=== PATIENT | female | born 1945 | race Caucasian/White ===

== ENCOUNTER → 2016-09-23 | Emergency (ER) | payer OTHER, MEDICARE ==
[2016-09-23 15:42] VITALS: BP 139/81; PULSE 92; RESP 16; TEMP 98.8; O2SAT 94
--- NOTE | 2016-09-23 15:43 | UCPHY ---
H & P Time Seen by Provider: 09/23/16 15:05 Patient Type: Established HPI/ROS: 71-year-old female presents complaining of diverticulitis she states she has been on Augmentin for about a week but can feel it is not improving and would like to change her antibiotic. She has had over 18 episodes of diverticulitis feels very familiar with this. She denies fevers or chills she denies vomiting. She states other than the fact that it is not improved on the Augmentin that seems very typical of her prior episodes. Review of systems As per HPI General no fever no chills no weakness HEENT no eye pain no eye discharge. No eye redness, no sore throat Respiratory no cough, no shortness of breath Cardiac no chest pain, no peripheral edema GI positive abdominal pain, no diarrhea, no constipation, no nausea, no vomiting no flank pain, no hematuria, no dysuria Musculoskeletal no myalgias, no joint pain Heme no easy bruising, no easy bleeding Endo no polyuria, no polydipsia Skin no rashes, no pruritus Neuro no syncope, no dizziness, no headaches Psych is no suicidal ideation, no homicidal ideation Past Medical/Surgical History: Hypertension Hypothyroid Diverticulitis Social History: Alcohol socially l or drug use Smoking Status: Former smoker Physical Exam: 71-year-old female alert and oriented no acute distress nontoxic appearance afebrile Alert and oriented in no acute distress nontoxic appearance, afebrile Atraumatic normocephalic Neck no JVD Lungs clear to auscultation, no respiratory distress Heart regular rate and rhythm Abdomen-obese, bowel sounds present, soft, tenderness to palpation left lower quadrant no guarding no rebound Extremities no cyanosis clubbing edema Constitutional: Initial Vital Signs Temperature (C) 37.1 C 09/23/16 15:20 Heart Rate 92 09/23/16 15:20 Respiratory Rate 16 09/23/16 15:20 Blood Pressure 139/81 H 09/23/16 15:20 O2 Sat (%) 94 09/23/16 15:20 O2 Delivery Mode Room Air Allergies/Adverse Reactions: morphine [Morphine] Allergy (Intermediate, Verified 09/23/16 15:23) Hives Sulfa (Sulfonamide Antibiotics) Allergy (Intermediate, Verified 09/23/16 15:23) Hives VENANCIO Inhibitors Allergy (Verified 09/23/16 15:23) Unknown bacitracin [From Neosporin (luc-urn-avixd)] Allergy (Verified 09/23/16 15:23) Hives bacitracin zinc [From Neosporin (etw-wbe-yuenl)] Allergy (Verified 09/23/16 15: 23) neomycin sulfate [From Neosporin (ujh-kge-rngdt)] Allergy (Verified 09/23/16 15: 23) polymyxin B [From Neosporin (pir-nfs-nalpx)] Allergy (Verified 09/23/16 15:23) beta blockers Allergy (Uncoded 09/23/16 15:23) Home Medications: Medication Instructions Recorded Levothyroxine [Levothroid, 112 mcg PO DAILY@1000 02/02/11 Synthroid] amLODIPine BESYLATE [Norvasc] 10 mg PO HS 03/17/13 Cholecalciferol Vit D3 [Vitamin D3 2,000 units PO DAILY 03/24/13 2000 units (OTC)] Losartan Potassium 05/28/15 Augmentin 875 MG TAB (*) 09/23/16 Ciprofloxacin [Cipro] 500 mg PO BID #20 tab 09/23/16 Metronidazole 500 mg PO TID #30 tablet 09/23/16 Pravastatin Sodium 09/23/16 traZODONE 50MG (*) 09/23/16 Medical Decision Making ED Course/Re-evaluation: Patient seen and evaluated for change of antibiotic for current diverticulitis exacerbation Physical exam relatively benign positive left lower quadrant tenderness without guarding or rebound Vital signs stable no evidence of sepsis Patient is afebrile Currently on Augmentin Impression Diverticulitis by history Plan Cipro twice daily times 10 days Flagyl three times daily times 10 days Follow up with Dr. Cait Nazario Departure - Departure Disposition: Home, Routine, Self-Care Clinical Impression: Diverticulitis Condition: Good Instructions: Diverticulitis (ED) Referrals: Cait Nazario MD [Primary Care Provider] - As per Instructions Prescriptions: Ciprofloxacin [Cipro] 500 mg PO BID #20 tab Metronidazole 500 mg PO TID #30 tablet - PQRS PQRS Measurement: 134: Depression screening and followup, PRIME RAMOS-PHQ2 (12 years and older) Over the last 2 weeks, how often have you been bothered by any of the following problems? 1. Feeling down, depressed, or hopeless? 2. Little interest or pleasure in doing things? Patient answered no to both 1 and 2 130: Documentation of medications. Reviewed all patient medications, doses, route and frequency. 226: Do you smoke? No. 47: 65 and older: Advanced care planning. Patient designates surrogate decision maker as spouse.. [Patient has advanced directive.] 51: 18 years old and older with diagnosis of COPD, spirometry performance. [Patient has no history of COPD 52: 18 years old and older with COPD and symptoms of COPD or FEV1<60% predicted prescribed a B Agonist. [Spirometry not performed; equipment not available.]
== END | disposition home or self-care (01) ==
LOC: CED 14:56
DX: K57.92 Diverticulitis of intestine, part unspecified, without perforation or abscess without bleeding (principal); E03.9 Hypothyroidism, unspecified; I10 Essential (primary) hypertension; Z87.891 Personal history of nicotine dependence; Z88.2 Allergy status to sulfonamides; Z88.5 Allergy status to narcotic agent
CPT/HCPCS: 99214-PO; G0463-PO

== ENCOUNTER → 2017-03-26 | Outpatient (CLI) | payer OTHER, MEDICARE | LOC: FIMAGING 09:53 | PROVIDERS: ATTEND Internal Medicine Hematology & Oncology | DX: Z12.31 Encounter for screening mammogram for malignant neoplasm of breast (principal); Z90.11 Acquired absence of right breast and nipple | CPT/HCPCS: G0202-52 ==

== ENCOUNTER 2017-11-10 13:12 | Emergency (ER) | payer OTHER, MEDICARE ==
--- NOTE | 2017-11-10 13:43 | EDPHY ---
HPI/HX/ROS/PE/MDM Narrative: CHIEF COMPLAINT: Left arm pain radiating to neck HISTORY OF PRESENT ILLNESS: The patient is a 72 y/o female with a history of type 2 diabetes, hypertension, breast and colon cancer complaining of left arm pain that is radiating to her neck onset 2 weeks ago. In 2013 she had left lower arm surgery. Prior to the onset of pain she felt a popping sensation in her lower left arm. The pain has worsened over the last 2 weeks and became exacerbated today while working at the [employer]. At that time she had minor numbness and an irritated sensation in her shoulder. She has since noticed minor swelling and tenderness localized to the left wrist. Ibuprofen provided mild pain relief. For the past several days she has felt normal besides mild neck pain yesterday. No history of PE or DVT, clotting disorders. No fever, chills, chest pain, shortness of breath, palpitations, vomiting, diarrhea, urinary complaints, headache, lightheadedness. REVIEW OF SYSTEMS: Aside from elements discussed in the HPI, a comprehensive 10-point review of systems was reviewed and is negative. Normal chest CT, 1.[address] Saud Mari, oncologist. Normal heart catheterization in 2010. PAST MEDICAL HISTORY: Hypertension, colon cancer, diverticulitis, hypercholesteremia, type 2 diabetes, angio sarcoma, right-sided mastectomy, left arm surgery, normal heart catheterization (2010) SOCIAL HISTORY: Lives in [place], single, retired VITAL SIGNS: Reviewed by me GENERAL: Well-developed, well-nourished, resting comfortably in no respiratory distress. HEENT: Atraumatic. Eyes: No icterus, no injection. Mouth: moist mucous membranes. No erythema or lesions. Neck: supple with no adenopathy. LUNGS: Clear to auscultation bilaterally, no wheezes, rhonchi or rales. CARDIAC: Regular rate and rhythm, no rubs, murmurs or gallops. CHEST: Right-sided mastectomy. ABDOMEN: Soft, nontender, nondistended, bowel sounds normal. BACK: No CVA tenderness. EXTREMITIES: No lymph nodes in left axilla, no tenderness or swelling of the upper arm, unable to fully extend left elbow due to surgery, mild swelling and tenderness over radial aspect of left wrist. No trauma. Otherwise range of motion is normal throughout. NEURO: Alert and oriented, grossly nonfocal. SKIN: Warm and dry, no rash. PSYCHIATRIC: Normal mentation, no agitation. Portions of this note were transcribed by a health care / medical job titles. I personally performed a history, physical exam, medical decision making, and confirmed accuracy of information the transcribed note. ED Course: The patient is a 72 y/o female with a history of type 2 diabetes, hypertension, breast and colon cancer presenting with worsening left arm pain that is radiating to her neck onset 2 weeks ago. On exam she has no lymph nodes in left axilla, no tenderness or swelling of the humerus, unable to fully extend left elbow due to surgery, mild swelling and tenderness over radial aspect of left wrist. Labs, EKG, and left upper extremity US ordered. She is declining pain medication at this time. 1402: 12-LEAD EKG: Please see the full report in [facility]. My interpretation: Normal sinus rhythm with a rate of 74, probable inferior infarct Labs normal. US no DVT. Will DC with follow up. Suspect radicular pain or local musculoskeletal over-use pain in wrist. MDM: Diff dx considered included but not limited to upper extremity DVT, overuse syndrome, musculoskeletal pain, radicular pain, cardiac cause. - Data Points Imaging Results: US of Left UE: Impression: No evidence of vein thrombosis in the left arm. Results called and discussed with Lety Olivares MD at 11/10/2017 15:21. Dictated By: Mamadou Jerome MD Imaging: Discussed imaging studies w/ bingo caller Radiologist Laboratory Results: Laboratory Results 11/10/17 14:15 11/10/17 14:15 General Time Seen by Provider: 11/10/17 13:42 Initial Vital Signs: Initial Vital Signs Temperature (C) 36.5 C 11/10/17 13:26 Heart Rate 84 11/10/17 13:26 Respiratory Rate 18 11/10/17 13:26 Blood Pressure 146/45 H 11/10/17 13:26 O2 Sat (%) 95 11/10/17 13:26 O2 Delivery Mode Room Air Allergies/Adverse Reactions: morphine [Morphine] Allergy (Intermediate, Verified 09/23/16 15:23) Hives Sulfa (Sulfonamide Antibiotics) Allergy (Intermediate, Verified 09/23/16 15:23) Hives VENANCIO Inhibitors Allergy (Verified 09/23/16 15:23) Unknown bacitracin [From Neosporin (ojv-hix-bzgyj)] Allergy (Verified 09/23/16 15:23) Hives bacitracin zinc [From Neosporin (mbq-flc-txusk)] Allergy (Verified 09/23/16 15: 23) neomycin sulfate [From Neosporin (luc-cqt-afakt)] Allergy (Verified 09/23/16 15: 23) polymyxin B [From Neosporin (cay-klq-gpdcw)] Allergy (Verified 09/23/16 15:23) beta blockers Allergy (Uncoded 09/23/16 15:23) Home Medications: Medication Instructions Recorded Levothyroxine [Levothroid, 112 mcg PO DAILY@1000 02/02/11 Synthroid] amLODIPine BESYLATE [Norvasc] 10 mg PO HS 03/17/13 Cholecalciferol Vit D3 [Vitamin D3 2,000 units PO DAILY 03/24/13 2000 units (OTC)] Losartan Potassium 05/28/15 Augmentin 875 MG TAB (*) 09/23/16 Ciprofloxacin [Cipro] 500 mg PO BID #20 tab 09/23/16 Metronidazole 500 mg PO TID #30 tablet 09/23/16 Pravastatin Sodium 09/23/16 traZODONE 50MG (*) 09/23/16 Departure - Departure Disposition: Home, Routine, Self-Care Clinical Impression: Neck pain Arm pain Qualifiers: Laterality: left Qualified Code(s): M79.602 - Pain in left arm Condition: Good Instructions: Cervical Radiculopathy (ED), Arm Pain (ED) Additional Instructions: Okay to take Tylenol or ibuprofen as needed for ongoing discomfort. Please follow up with her primary care physician regarding further evaluation. Referrals: Cait Nazario MD [Primary Care Provider] - As per Instructions Report Scribed for: Lety Olivares Report Scribed by: Ifrah Oconnor Date of Report: 11/10/17 Time of Report: 13:43
--- NOTE | 2017-11-10 14:04 | CPEKG ---
Heart Rate: 74 RR Interval: 811 P-R Interval: 156 QRSD Interval: 76 QT Interval: 392 QTC Interval: 435 P Corea: 14 QRS Corea: -14 T Wave Corea: 5 EKG Severity - ABNORMAL ECG - EKG Impression: SINUS RHYTHM EKG Impression: PROBABLE INFERIOR INFARCT, AGE INDETERMINATE Electronically Signed By: Lety Olivares 11-Nov-2017 22:33:57
[2017-11-10 14:29] LABS: PLATELET COUNT 200 10^3/uL (150-400)
[2017-11-10 15:44] VITALS: BP 143/92
== END 2017-11-10 15:44 | disposition home or self-care (01) ==
DX: M54.2 Cervicalgia (principal); M79.602 Pain in left arm; I10 Essential (primary) hypertension; E11.9 Type 2 diabetes mellitus without complications; Z85.038 Personal history of other malignant neoplasm of large intestine

== ENCOUNTER → 2018-03-27 | Outpatient (CLI) | payer OTHER, MEDICARE | LOC: FIMAGING 12:32 | PROVIDERS: ATTEND Internal Medicine Hematology & Oncology | DX: Z12.31 Encounter for screening mammogram for malignant neoplasm of breast (principal); Z90.11 Acquired absence of right breast and nipple ==

== ENCOUNTER → 2018-05-21 | Outpatient (CLI) | payer OTHER, MEDICARE | LOC: FIMAGING 12:51 | PROVIDERS: ATTEND Internal Medicine | DX: Z13.820 Encounter for screening for osteoporosis (principal); M81.0 Age-related osteoporosis without current pathological fracture ==

== ENCOUNTER → 2018-11-18 | Outpatient (CLI) | payer OTHER, MEDICARE | LOC: BHLMT 10:00 | PROVIDERS: ATTEND Internal Medicine Cardiovascular Disease | DX: R07.9 Chest pain, unspecified (principal) | CPT/HCPCS: 93017-PO ==

== ENCOUNTER 2018-11-25 07:17 | Day surgery (SDC) | payer OTHER, MEDICARE ==
[2018-11-25] MEDS ORDERED: DIAZEPAM 5 MG TAB PO ONE (07:19)
[2018-11-25] MEDS ORDERED: FAMOTIDINE 20 MG TAB PO ONE (07:19)
[2018-11-25] MEDS ORDERED: ASPIRIN EC 325 MG TAB PO ONE ×2 (07:19→07:34)
[2018-11-25] MEDS ORDERED: diphenhydrAMINE 25 MG CAP PO ONE ×2 (07:19→07:34)
[2018-11-25] MEDS ORDERED: NS 1,000 ML IV ONE (07:19)
[2018-11-25] MEDS ORDERED: FAMOTIDINE 20 MG TAB ONE (07:34)
[2018-11-25] MEDS ORDERED: DIAZEPAM 5 MG TAB ONE (07:35)
[2018-11-25] MEDS ORDERED: MIDAZOLAM 2 MG/2 ML VIAL ONE (08:06)
[2018-11-25] MEDS ORDERED: fentaNYL 100 MCG/2 ML INJ ONE (08:06)
[2018-11-25] MEDS ORDERED: HEPARIN 10,000 UNIT/10 ML MDV (1,000 UNIT/ML) ONE ×2 (08:06→08:21)
[2018-11-25] MEDS ORDERED: LIDOCAINE 1% 300 MG/30 ML SDV ONE ×2 (08:06→08:20)
[2018-11-25] MEDS ORDERED: VERAPAMIL 5 MG/2 ML VIAL ONE (08:06)
[2018-11-25] MEDS ORDERED: IOPAMIDOL (ISOVUE-370) 150 ML BTL IV ONE (08:07)
[2018-11-25 08:18] LABS: PLATELET COUNT 182 10^3/uL (150-400)
[2018-11-25] MEDS ORDERED: BUPIVACAINE 0.5% 30 ML SDV ONE (08:20)
[2018-11-25] MEDS ORDERED: IOPAMIDOL (ISOVUE-300) 100 ML BTL ONE (08:20)
[2018-11-25 08:29] LABS: INR 0.92 (0.83-1.16)
--- NOTE | 2018-11-25 08:48 | PDPROPOC ---
Sedation Plan of Care Sedation Plan of Care: vital signs stable, mental status noted, patient educated of risks, benefits, alternatives, patient can tolerate sedation ASA Classification: ASA 3 Planned drugs: fentanyl, midazolam Mallampati Score: Class 3 Mallampati Reference Image: Patient passed 3-3-2 rule?: No
--- NOTE | 2018-11-25 08:48 | PDHPUP ---
History & Physical Update H&P update statement: This history and physical update is based on an assessment of the patient which was completed after admission or registration (within 24 hours), but prior to the surgery/procedure. H&P update: H&P reviewed & patient examined, no change in patient's condition since H&P completed
[2018-11-25] MEDS ORDERED: NITROGLYCERIN 0.4 MG BTL SL PRN (09:57)
[2018-11-25] MEDS ORDERED: ATROPINE SULFATE 1 MG/10 ML SYR IVP PRN (09:57)
[2018-11-25] MEDS ORDERED: ONDANSETRON 4 MG/2 ML VIAL IVP PRN (09:57)
[2018-11-25] MEDS ORDERED: IBUPROFEN 200 MG TAB PO PRN (10:04)
--- NOTE | 2018-11-25 10:55 | CPIP ---
[f rep st] INVASIVE CARDIAC PROCEDURE DATE OF PROCEDURE: 11/25/2018 PROCEDURE PERFORMED: 1. Right and left heart catheterization. 2. Selective coronary angiography. 3. Left ventriculogram. 4. TR band arteriotomy repair. COMPLICATIONS: None. JAVA SOFTWARE ENGINEER: Andre Guzman MD. INDICATION: CCS class 4 angina with an intermediate risk stress test, New Heart Association class II I symptoms of shortness of breath with exertion. PROCEDURE IN DETAIL: After n.p.o. status was confirmed and informed consent was given, the patient w as taken to the cardiac catheterization laboratory. The region of the left wrist and left antecubita l fossa were cleaned, prepped, and draped in sterile fashion. An antecubital intravenous line was ex changed for a 5-Chilean sheath. Likewise, a 5-Chilean sheath was placed to the left radial artery with a modified Seldinger technique. Prior to the procedure, the patient did have a plethysmography trac e assisted Cleveland's test demonstrating normal and dual arterial supply to the left index finger. The patient then underwent the previously mentioned diagnostic procedures with the use of JL4 and R4 curv ed coronary catheters, as well as a 5-Chilean pigtail catheter. Standard wire exchange technique was utilized for all catheter exchanges. The right heart catheterization was accomplished with a 5-Frenc h balloon tipped [place]-Favio catheter. The right heart pressures were found to be a pulmonary capillary wedge pressure of 9 with an A-wave o f 13, V-wave 10. PA pressure was 39/11 with a mean of 24. RV pressure 39/2 with end-diastolic press ure of 8. RA pressure was 8 with an A-wave of 13, a V-wave, which was measurable, consistent with mi ld tricuspid regurgitation. A sat run was performed with simultaneous saturations in order to obtain a Anika cardiac output was found to be 6 L/minute with a Anika cardiac index of 3.2 at a heart rate of 74. The patient then underwent selective coronary geography. The right coronary artery is dominant givin g rise to posterior descending, as well as to 2 posterolateral ventricular branches. Of importance, no significant flow-limiting obstruction of the vessel was identified. There was no plaque seen. Th e left main coronary lumen is approximately 7 mm in size. It bifurcates into an LAD and circumflex s ystem. The LAD is approximately 3.5 mm in size, giving rise to an early diagonal branch, which is a functional ramus vessel approximately 2 mm in size. There is an early diagonal branch, which is appr oximately 2.5 mm in size, which gives rise to all of the subsequent lateral branches. The LAD is michael roximately 2.5 mm in size after the first septal branch and courses the anterior apex without flow-li miting obstruction, dissection, or thrombus. The circumflex vessel is approximately 3.5 mm in size a nd gives rise to a large obtuse marginal branch, as well as continuation of the circumflex, which moreland s reach the region of the posterior descending artery. The left ventricular end-diastolic pressure was measured with a pigtail catheter, found to be 12 mmHg , which is normal. The patient underwent left ventriculogram in the JACKSON projection demonstrating pre served left ventricular systolic function, ejection fraction is 75%. There was no gradient upon pull back across the aortic valve. Visualized portion of thoracic aorta reveals 3 sinuses of Valsalva mos t consistent with a trileaflet aortic valve. The aorta in its proximal and ascending position is pro minent and may be consistent with an early aneurysm; however, this modality is not accurate in regard to measuring the size of the aorta. It does have a fusiform appearance, which could be consistent w ith a risk for aneurysm developed later in life. FINAL IMPRESSION: The patient has a normal right-dominant coronary system without evidence of flow-l imiting obstruction or plaque. The right heart pressures are modestly elevated, but inconsistent wit h significant pulmonary hypertension; in fact, I think the pulmonary pressure as measured, as well as filling pressures are age appropriate. The patient's filling pressure also in an n.p.o. state was f ound to be normal. The patient does not have significant or flow-limiting coronary disease. The lef t ventricle is hypercontractile and horizontal in its position in the chest, probably secondary to th e patient's body habitus. A cause for the patient's neck and shoulder and arm pain at rest is not id entified on the basis of the study. The patient does not have significant heart disease and should b e managed medically for her left arm and neck discomfort. /[id number]/MODL
--- NOTE | 2018-11-25 18:25 | ECHO ---
[email or web address] [address] Main: [phone] Echocardiography Examination Transthoracic Name: JEEVAN LITTLE MR#: [id number] Study Date: 11/25/2018 Study Time: 11:35 AM Date of : 1945 Age: 73 year(s) Height: 160 cm (63 in.) Weight: 86.18 kg (190 lb.) BSA: 1.89 m2 Gender: Female Examination: Echo Contrast: Image Quality: Technically Difficult Rhythm: Normal sinus rhythm Heart Rate: 65 bpm BP: 140 mmHg/74 mmHg Indication: check aorta Procedure Staff Referring Physician: Orthodontic Assistant: Daily Jaquez [facility] Reading Physician: Ashley Subramanian MD Requesting Provider: Ordering Physician: Andre Guzman MD Indication: check aorta Measurements Chambers AV/MV Label Value Normal Value Label Value Normal Value LVOT Vmax 1.09 m/s (0.7m/s - 1.1m/s) AV PGmax 19 mmHg LVOTd 2 cm (1.8cm - 2cm) AV PGmean 9 mmHg LVOT VTI 25.7 cm (18cm - 22cm) AV Vmax 2.2 m/s LVDd, 2D 4.6 cm (3.9cm - 5.3cm) ADRIAN (Vmax) 1.6 cm2 LVDs, 2D 2.8 cm (2.1cm - 4cm) ADRIAN (VTI) 1.9 cm2 IVSd, 2D 1 cm (0.6cm - 1.1cm) MV E Vmax 0.61 m/s LVPWd, 2D 1 cm MV A Vmax 0.98 m/s LVEF, BP 71 % (55% - 70%) MV E/A 0.62 LVEF, 2D 71 % (54% - 74%) MV E/E' lateral 9 LVOT PGmean 3 mmHg MV E/E' septal 8.1 (0.45 - 1.25) LVOT Vmean 0.84 m/s MV DT 190 ms RVDd, 2D 3.6 cm (1.9cm - 3.8cm) MV E' septal 0.08 m/s TAPSE 2.3 cm MV E' lateral 0.07 m/s LA Volume, BP 50 ml (22ml - 52ml) MV E/E' mean 8.13 LADs, 2D 4.1 cm (2.7cm - 3.8cm) MV E' mean 0.08 m/s LAESV index, BP 26.5 ml/m2 TV/PV RA Area 14 cm2 Label Value Normal Value Additional Vessels RA Pressure 5 mmHg Label Value Normal Value RVSP 33 mmHg Patient: JEEVAN LITTLE Study Date: 11/25/2018 Page 1 of 3 11:35 AM AoAsc 3.3 cm TR Pmax 28 mmHg AoRoot, 2D 2.9 cm (1.4cm - 2.6cm) TR Vmax 2.64 m/s PV PGmax 6 mmHg PV Vmax, Caliper 1.19 m/s (0.6m/s - 0.9m/s) Conclusions 1. Normal LV size and systolic function. Normal wall motion. LVEF is 71%. 2. RV is normal in size and systolic function 3. Elevated aortic valve gradients without significant 4. Mild to moderate TR with normal estimated PASP 5. Visualized portions of the ascending, transverse, and descending aorta are normal; if full visualization of the thoracic aorta is required, consider dedicated CT 6. Compared with 01/2011, estimated PASP is lower Findings Left Ventricle: Left ventricle is normal in size. Normal global systolic left ventricular function. EF evaluated by EF (biplane Mcnulty's). The ejection fraction, measured by Simpsons method, is 71 %. EF range is estimated at 65 % - 70 %. There is mild concentric left ventricular hypertrophy. There are no regional wall motion abnormalities. Left ventricular diastolic function parameters are normal. Right Ventricle: Normal size right ventricle. Right ventricular systolic function is normal. Left Atrium: The left atrium is normal in size. Right Atrium: The right atrium is normal in size. Mitral Valve: Trivial mitral regurgitation. No mitral valve stenosis. There is mild mitral thickening. Aortic Valve: Aortic valve is poorly visualized. No aortic valve regurgitation. The aortic valve gradients are slightly elevated howevere there is no significant aortic stenosis. The aortic valve is probably trileaflet. There is aortic sclerosis present. Tricuspid Valve: Tricuspid valve is poorly visualized. Mild to moderate tricuspid regurgitation. No tricuspid valve stenosis. Right Ventricular systolic pressure is measured at 33 mmHg. Pulmonary artery pressure slightly increased. Pulmonic Valve: Pulmonic valve is poorly visualized. Aorta: The aortic root size in 2D measures 2.9 cm. The aortic root exhibits normal size. The ascending aorta measures 3.3 cm. Ascending aorta is normal in size. Aorta Measurements AoRoot, 2D is 2.9 cm. IVC: The inferior vena cava is normal in size and course. Pericardium: A pericardial fat pad is present. No pericardial effusion. Exam Details Procedure Ordered: Echo Procedure Status: Routine study Image Quality: Technically Difficult Facility Location: Cardiac Echo 1 Patient: JEEVAN LITTLE Study Date: 11/25/2018 Page 2 of 3 11:35 AM (No Signature Object) Patient: JEEVAN LITTLE Study Date: 11/25/2018 Page 3 of 3 11:35 AM [id number]
[2018-11-25] MEDS ORDERED: NON-FORMULARY NEW DRUG (Losartan Potassium [Losartan Potassium] 100 MG) PO SCH (21:00)
[2018-11-25] MEDS ORDERED: traZODone 50 MG TAB PO SCH (21:00)
[2018-11-25] MEDS ORDERED: amLODIPine BESYLATE 5 MG TAB PO SCH (21:00)
[2018-11-25] MEDS ORDERED: NON-FORMULARY NEW DRUG (Pravastatin Sodium [Pravachol] 80 MG) PO SCH (21:00)
[2018-11-26] MEDS ORDERED: LEVOTHYROXINE 112 MCG TAB PO SCH (06:00)
[2018-11-26] MEDS ORDERED: NON-FORMULARY NEW DRUG (Omeprazole [Omeprazole] 20 MG) PO SCH (09:00)
[2018-11-26] MEDS ORDERED: MULTIVITAMINS 1 EACH TAB PO SCH (09:00)
[2018-11-26] MEDS ORDERED: OMEGA-3 FATTY ACIDS 1,000 MG CAP PO SCH (09:00)
--- NOTE | 2018-11-26 13:12 | CPEKG ---
Test Reason : OPEN Blood Pressure : / mmHG Vent. Rate : 085 BPM Atrial Rate : 085 BPM P-R Int : 180 ms QRS Dur : 074 ms QT Int : 377 ms P-R-T Axes : 052 -19 027 degrees QTc Int : 449 ms Sinus rhythm Inferior infarct, old Confirmed by Gabirel Wiseman ([id number]) on 11/26/2018 1:12:01 PM Referred By: Andre Guzman Confirmed By:Gabriel Wiseman
== END 2018-11-25 13:52 | disposition home or self-care (01) ==
LOC: FCATH 07:17
PROVIDERS: ATTEND Internal Medicine Cardiovascular Disease
PROC: B2111ZZ Fluoroscopy of Multiple Coronary Arteries using Low Osmolar Contrast (ICD-10-PCS; principal; 2018-11-25)
PROC: B2151ZZ Fluoroscopy of Left Heart using Low Osmolar Contrast (ICD-10-PCS; principal; 2018-11-25)
PROC: 4A023N8 Measurement of Cardiac Sampling and Pressure, Bilateral, Percutaneous Approach (ICD-10-PCS; principal; 2018-11-25)
DX: I20.9 Angina pectoris, unspecified (principal); R94.39 Abnormal result of other cardiovascular function study; M54.2 Cervicalgia; I27.20 Pulmonary hypertension, unspecified; I47.2 Ventricular tachycardia; I10 Essential (primary) hypertension; E78.5 Hyperlipidemia, unspecified; E11.9 Type 2 diabetes mellitus without complications; Z82.49 Family history of ischemic heart disease and other diseases of the circulatory system; Z85.3 Personal history of malignant neoplasm of breast
CPT/HCPCS: 93005; 93306; 93460; C1769; J1644; J2250; J3010; Q9967